=== PATIENT | female | born 1950 | race Caucasian/White ===

== ENCOUNTER 2018-02-02 13:35 | Emergency (ER) | payer OTHER ==
[~2018-02-02] VITALS: Ht 157.5 cm; Wt 56.7 kg
[~2018-02-02 13:35] MED LIST: ALBU90OI; ALBU90OI61 INH; ALPR.5 PO; AMIT50 PO; ASPI81CH; ASPI81EC; BAYER PM CAPLE1 EACH PO; BENZ100A; BUPR150T2; CALCAVITD PO; CALCAVITDA; CALGLU500; CALGLU500 PO; CEFD300 PO; CEPH500 PO; CETI10 PO; CETI5 PO; CHOL10002 PO; CIPR500 PO; CLON1; CYCL0.05OP; CYCL10 PO; Cipro500 MG PO; Cymbalta60 MG PO; DIAZ5 PO; DIPH50; DULO60; DULO60 PO; DULOXETINE; ERGO400; ERGO400 PO; ESCI20; FENO145 PO; FISH1000 PO; FLOVENT; FURO20 PO; GABA300 PO; HYDACE10 PO; HYDACE5 PO; HYDHCL25 PO; HYDMOR2 PO; IBUHYD PO; IBUP800 PO; LACT10SY PO; LAVAP17G PO; LEVFLO500 PO; LISI5 PO; LORA10ER; LOVA40 PO; MAGCIT300 PO; MECL25 PO; MELO7.5 PO; METF500; METF500 PO; METO2.5; METR500 PO; MONT10T PO; MULVITMINE; Mobic7.5 MG PO; NIAC500ER PO; NITR.4SL; NORT75 PO; Naprosyn500 MG PO; Neurontin 300300 MG PO; OMEP20ER; OMEP20ER PO; ONDA8ODT MM; OXYACE5T PO; OXYC10TA19 PO; OXYC5 PO; Omeprazole20 M1 PO; PHENA200 PO; PIOG15 PO; POTASSIUM 10 MEQ; POTCHL10ER; POTCHL10ER PO; PRO AIR; PROC25S PR; PROM25 PO; Prilosec20 MG PO; Prinivil5 MG PO; QUET100; QUET200; QUET25; RANI150; RANI150 PO; RISE35; RISE5; RXCEPH500 PO; RXHYDACE PO; RXOXYACE PO; RXPROM25 PO; Roxicodone5 MG PO; SEROQUEL; STOMUL PO; TAMS.4ER; TRAM50 PO; TRAZ100; TRAZ50 PO; TRAZADONE 150MG; Thera Tears1 EACH; Ultram50 MG PO; Voltaren100 GM TOP; ZIPR20; ZIPR20 PO; ZIPR40 PO; ZIPR80; ZIPR80 PO; ZIPRASIDONE; Zantac150 MG PO; Zofran Odt4 MG SL
== END 2018-02-02 15:50 | disposition home or self-care (01) ==
LOC: ER 13:35
DX: S62.367D Nondisplaced fracture of neck of fifth metacarpal bone, left hand, subsequent encounter for fracture with routine healing (principal); W22.8XXD Striking against or struck by other objects, subsequent encounter; Z88.0 Allergy status to penicillin; Z88.5 Allergy status to narcotic agent; Z88.1 Allergy status to other antibiotic agents; Z88.2 Allergy status to sulfonamides; Z79.899 Other long term (current) drug therapy; J45.909 Unspecified asthma, uncomplicated
CPT/HCPCS: 96372; 99282; J1885

== ENCOUNTER 2018-02-24 02:31 | Emergency (ER) | payer OTHER ==
[~2018-02-24] VITALS: Ht 154.9 cm; Wt 55.3 kg
[2018-02-24] MEDS ORDERED: PANT20 (03:55)
== END 2018-02-24 04:14 | disposition home or self-care (01) ==
LOC: ER 02:31
DX: S62.327D Displaced fracture of shaft of fifth metacarpal bone, left hand, subsequent encounter for fracture with routine healing (principal); S62.337D Displaced fracture of neck of fifth metacarpal bone, left hand, subsequent encounter for fracture with routine healing; E11.9 Type 2 diabetes mellitus without complications; J45.909 Unspecified asthma, uncomplicated; Z88.5 Allergy status to narcotic agent; Z88.0 Allergy status to penicillin; Z88.2 Allergy status to sulfonamides; Z88.1 Allergy status to other antibiotic agents; Z88.8 Allergy status to other drugs, medicaments and biological substances; Z79.899 Other long term (current) drug therapy
CPT/HCPCS: 29125; 73120; 96372; 99283-25; J1885

== ENCOUNTER 2018-07-10 17:57 | Emergency (ER) | payer MEDICARE, OTHER ==
[~2018-07-10] VITALS: Ht 160 cm; Wt 49.9 kg
[~2018-07-10 17:57] MED LIST changes: +Cyclobenzaprine5 MG PO; +Norco 5-325 Ta1 EACH PO; +PANT20
[2018-07-10] MEDS ORDERED: LIDO700A20 TOP (19:09)
[2018-08-14] MEDS ORDERED: IBUP400 PO (21:40)
[2018-08-14] MEDS ORDERED: HYDHCL25 PO (21:40)
== END 2018-07-10 19:33 | disposition home or self-care (01) ==
LOC: ER 17:57
DX: M25.511 Pain in right shoulder (principal); E11.9 Type 2 diabetes mellitus without complications; Z88.6 Allergy status to analgesic agent; Z88.2 Allergy status to sulfonamides; Z88.0 Allergy status to penicillin; Z88.5 Allergy status to narcotic agent; Z88.1 Allergy status to other antibiotic agents; Z88.8 Allergy status to other drugs, medicaments and biological substances
CPT/HCPCS: 99283

== ENCOUNTER 2018-07-29 20:28 | Emergency (ER) | payer MEDICARE, OTHER ==
[~2018-07-29] VITALS: Ht 157.5 cm; Wt 54.4 kg
[~2018-07-29 20:28] MED LIST changes: +LIDO700A20 TOP
[2018-07-29] MEDS ORDERED: Zantac150 MG PO (22:02)
[2018-07-29] MEDS ORDERED: BENA20 PO (22:03)
[2018-07-29] MEDS ORDERED: Robaxin500 MG PO (22:28)
[2018-08-14] MEDS ORDERED: HYDHCL25 PO (21:40)
[2018-08-14] MEDS ORDERED: IBUP400 PO (21:40)
== END 2018-07-29 22:38 | disposition home or self-care (01) ==
LOC: ER 20:28
DX: M79.641 Pain in right hand (principal); E11.9 Type 2 diabetes mellitus without complications; J45.909 Unspecified asthma, uncomplicated; Z88.6 Allergy status to analgesic agent; Z88.0 Allergy status to penicillin; Z88.2 Allergy status to sulfonamides; Z88.5 Allergy status to narcotic agent; Z88.1 Allergy status to other antibiotic agents; Z88.8 Allergy status to other drugs, medicaments and biological substances; Z79.899 Other long term (current) drug therapy
CPT/HCPCS: 99283

== ENCOUNTER 2018-08-19 10:42 | Emergency (ER) | payer MEDICARE, OTHER ==
[~2018-08-19] VITALS: Ht 157.5 cm; Wt 54.4 kg
[~2018-08-19 10:42] MED LIST changes: +BENA20 PO; +IBUP400 PO; +Robaxin500 MG PO
[2018-08-19] MEDS ORDERED: Robaxin500 MG PO (11:56)
[2018-08-22] MEDS ORDERED: LIDO700A20 TOP (20:37)
== END 2018-08-19 12:11 | disposition home or self-care (01) ==
LOC: ER 10:42
DX: R07.81 Pleurodynia (principal); K21.9 Gastro-esophageal reflux disease without esophagitis; E11.9 Type 2 diabetes mellitus without complications; J45.909 Unspecified asthma, uncomplicated; Z88.6 Allergy status to analgesic agent; Z88.0 Allergy status to penicillin; Z88.2 Allergy status to sulfonamides; Z88.8 Allergy status to other drugs, medicaments and biological substances; Z88.5 Allergy status to narcotic agent; Z79.899 Other long term (current) drug therapy
CPT/HCPCS: 99283

== ENCOUNTER 2018-09-20 21:47 | Emergency (ER) | payer MEDICARE ==
[~2018-09-20] VITALS: Ht 157.5 cm; Wt 54.4 kg
[2018-09-20] MEDS ORDERED: OXYC5 PO (22:16)
[2018-09-20] MEDS ORDERED: TRAM50 PO (22:17)
[2018-09-20] MEDS ORDERED: Robaxin-750750 MG PO (23:59)
[2018-09-20] MEDS ORDERED: IBUP800 PO (23:59)
[2018-09-20] MEDS ORDERED: Ultram50 MG PO (23:59)
== END 2018-09-21 00:35 | disposition home or self-care (01) ==
LOC: ER 21:47
DX: R07.89 Other chest pain (principal); M54.6 Pain in thoracic spine; G89.29 Other chronic pain; Z88.0 Allergy status to penicillin; Z88.2 Allergy status to sulfonamides; Z88.8 Allergy status to other drugs, medicaments and biological substances; Z88.1 Allergy status to other antibiotic agents; Z79.899 Other long term (current) drug therapy; E11.9 Type 2 diabetes mellitus without complications; K21.9 Gastro-esophageal reflux disease without esophagitis
CPT/HCPCS: 96372; 99283-25; J1885

== ENCOUNTER 2018-11-21 00:28 | Emergency (ER) | payer OTHER ==
[~2018-11-21 00:28] MED LIST changes: +Robaxin-750750 MG PO
== END 2018-11-21 03:30 | disposition left against medical advice (07) ==
LOC: ER 00:28
DX: Z53.21 Procedure and treatment not carried out due to patient leaving prior to being seen by health care provider (principal)

== ENCOUNTER 2019-03-15 13:57 | Emergency (ER) | payer OTHER ==
[~2019-03-15] VITALS: Ht 157.5 cm; Wt 60.3 kg
[2019-03-15 15:25] LABS: Calcium, Ionized (POC) 1.26 mmol/L (1.10-1.46); Chloride (POC) 101 mmol/L (98-108); Creatinine (POC) 0.9 mg/dL (0.6-1.0); Glucose (ISTAT POC) 90 mg/dL (70-99); Potassium (POC) 4.4 mmol/L (3.5-5.5); Sodium (POC) 139 mmol/L (135-148); Total CO2 (POC) 31 mmol/L (21-32)
[2019-03-15] MEDS ORDERED: MOTION RELIEF25 MG PO (15:30)
== END 2019-03-15 15:55 | disposition home or self-care (01) ==
LOC: ER 13:57
PROVIDERS: Physician Assistant
DX: R42 Dizziness and giddiness (principal); E11.22 Type 2 diabetes mellitus with diabetic chronic kidney disease; N18.9 Chronic kidney disease, unspecified; F17.200 Nicotine dependence, unspecified, uncomplicated; Z88.8 Allergy status to other drugs, medicaments and biological substances; Z88.0 Allergy status to penicillin; Z88.2 Allergy status to sulfonamides; Z88.1 Allergy status to other antibiotic agents; Z88.5 Allergy status to narcotic agent
CPT/HCPCS: 36415; 80047; 85014; 93005; 93010; 99284-25

== ENCOUNTER 2019-04-06 19:34 | Emergency (ER) | payer OTHER ==
[~2019-04-06] VITALS: Ht 157.5 cm; Wt 56.7 kg
[~2019-04-06 19:34] MED LIST changes: +MOTION RELIEF25 MG PO
[2019-04-06] MEDS ORDERED: Flonase 0.05% N16 GM ×2 (19:51→20:21)
[2019-04-06] MEDS ORDERED: Sudogest60 MG PO (19:51)
== END 2019-04-06 20:22 | disposition home or self-care (01) ==
LOC: ER 19:34
DX: J32.9 Chronic sinusitis, unspecified (principal); E11.9 Type 2 diabetes mellitus without complications; K21.9 Gastro-esophageal reflux disease without esophagitis; J45.909 Unspecified asthma, uncomplicated; Z79.899 Other long term (current) drug therapy
CPT/HCPCS: 99283

== ENCOUNTER 2019-12-02 18:16 | Emergency (ER) | payer MEDICARE ==
[~2019-12-02] VITALS: Ht 162.6 cm; Wt 60.3 kg
[~2019-12-02 18:16] MED LIST changes: +Flonase 0.05% N16 GM; +Sudogest60 MG PO
== END 2019-12-02 22:05 | disposition home or self-care (01) ==
LOC: ER 18:16
DX: S29.011A Strain of muscle and tendon of front wall of thorax, initial encounter (principal); E11.9 Type 2 diabetes mellitus without complications; J45.909 Unspecified asthma, uncomplicated; K21.9 Gastro-esophageal reflux disease without esophagitis; Z88.6 Allergy status to analgesic agent; Z88.0 Allergy status to penicillin; Z88.2 Allergy status to sulfonamides; Z88.5 Allergy status to narcotic agent; Z88.8 Allergy status to other drugs, medicaments and biological substances; Z88.1 Allergy status to other antibiotic agents; X50.0XXA Overexertion from strenuous movement or load, initial encounter
CPT/HCPCS: 99283

== ENCOUNTER 2019-12-07 19:03 | Emergency (ER) | payer MEDICARE ==
[~2019-12-07] VITALS: Ht 157.5 cm; Wt 60.3 kg
== END 2019-12-07 21:24 | disposition home or self-care (01) ==
LOC: ER 19:03
DX: B35.4 Tinea corporis (principal); Z88.0 Allergy status to penicillin; Z88.2 Allergy status to sulfonamides; Z88.5 Allergy status to narcotic agent; Z88.1 Allergy status to other antibiotic agents
CPT/HCPCS: 99282

== ENCOUNTER 2020-02-24 00:29 | Emergency (ER) | payer MEDICARE ==
[~2020-02-24] VITALS: Ht 157.5 cm; Wt 59.0 kg
== END 2020-02-24 02:50 | disposition home or self-care (01) ==
LOC: ER 00:29
DX: S60.221A Contusion of right hand, initial encounter (principal); M25.521 Pain in right elbow; E11.9 Type 2 diabetes mellitus without complications; K21.9 Gastro-esophageal reflux disease without esophagitis; J45.909 Unspecified asthma, uncomplicated; Z88.6 Allergy status to analgesic agent; Z88.0 Allergy status to penicillin; Z88.2 Allergy status to sulfonamides; Z88.5 Allergy status to narcotic agent; Z88.1 Allergy status to other antibiotic agents; Z88.8 Allergy status to other drugs, medicaments and biological substances; W01.0XXA Fall on same level from slipping, tripping and stumbling without subsequent striking against object, initial encounter; Y92.480 Sidewalk as the place of occurrence of the external cause
CPT/HCPCS: 73090; 73110; 96372; 99283-25; J1885

== ENCOUNTER 2020-09-14 10:51 | Emergency (ER) | payer MEDICARE ==
[~2020-09-14] VITALS: Ht 157.5 cm; Wt 54.4 kg
[2020-09-14] MEDS ORDERED: HYDHCL25 PO (12:17)
[2020-09-14] MEDS ORDERED: Benadryl Itch28.3 G1 TOP (12:17)
== END 2020-09-14 12:21 | disposition home or self-care (01) ==
LOC: ER 10:51
DX: L30.8 Other specified dermatitis (principal); E11.9 Type 2 diabetes mellitus without complications; K21.9 Gastro-esophageal reflux disease without esophagitis; Z88.5 Allergy status to narcotic agent; Z88.0 Allergy status to penicillin; Z88.2 Allergy status to sulfonamides; Z88.1 Allergy status to other antibiotic agents; Z79.899 Other long term (current) drug therapy
CPT/HCPCS: 99282

== ENCOUNTER 2022-01-19 00:52 | Emergency (ER) | payer MEDICARE ==
[~2022-01-19 00:52] MED LIST changes: +Benadryl Itch28.3 G1 TOP
== END 2022-01-19 04:30 | disposition home or self-care (01) ==
LOC: ER 00:52
DX: M25.511 Pain in right shoulder (principal); R07.9 Chest pain, unspecified; E11.9 Type 2 diabetes mellitus without complications; J45.909 Unspecified asthma, uncomplicated; Z88.6 Allergy status to analgesic agent; Z88.1 Allergy status to other antibiotic agents; Z88.5 Allergy status to narcotic agent; Z88.0 Allergy status to penicillin; Z88.2 Allergy status to sulfonamides; Z88.8 Allergy status to other drugs, medicaments and biological substances
CPT/HCPCS: 93005; 93010

== ENCOUNTER 2022-04-23 01:54 | Emergency (ER) | payer MEDICARE ==
[~2022-04-23] VITALS: Ht 152.4 cm; Wt 63.5 kg
== END 2022-04-23 02:55 | disposition home or self-care (01) ==
LOC: ER 01:54
DX: L03.115 Cellulitis of right lower limb (principal); L02.415 Cutaneous abscess of right lower limb; L03.116 Cellulitis of left lower limb; L02.416 Cutaneous abscess of left lower limb; E11.9 Type 2 diabetes mellitus without complications; J45.909 Unspecified asthma, uncomplicated; Z88.0 Allergy status to penicillin; Z88.2 Allergy status to sulfonamides; Z88.6 Allergy status to analgesic agent; Z88.1 Allergy status to other antibiotic agents; Z88.5 Allergy status to narcotic agent; Z88.8 Allergy status to other drugs, medicaments and biological substances; Z79.899 Other long term (current) drug therapy
CPT/HCPCS: A9270

== ENCOUNTER 2023-01-11 16:44 | Emergency (ER) | payer MEDICARE ==
[~2023-01-11] VITALS: Ht 160 cm; Wt 49.9 kg
[2023-01-11 18:17] LABS: BASOPHILS ABSOLUTE AUTO 0.03 K/mm3 (0.00-0.23); BASOPHILS PERCENT AUTO 1 % (0-2); EOSINOPHILS PERCENT AUTO 0 % (0-6); Hematocrit 49.5 % (33.0-51.0); Hemoglobin 16.6 g/dL (11.5-16.0); IMMATURE GRAN ABSOLUTE AUTO 0.02 K/mm3 (0.00-0.10); IMMATURE GRAN PERCENT AUTO 1 % (0-1); LYMPHOCYTES ABSOLUTE AUTO 1.18 K/mm3 (0.84-5.20); LYMPHOCYTES PERCENT AUTO 28 % (21-46); MONOCYTES ABSOLUTE AUTO 0.62 K/mm3 (0.16-1.47); MONOCYTES PERCENT AUTO 15 % (4-13); Mean Corpuscular HGB 30.1 pg (26.0-34.0); Mean Corpuscular HGB Conc 33.5 g/dL (31.5-36.5); Mean Corpuscular Volume 90 fL (80-100); Mean Platelet Volume 9.9 fL (9.1-12.4); NEUTROPHILS PERCENT AUTO 56 % (41-73); Platelet Count 210 K/mm3 (150-400); RDW Coefficient Variation 11.7 % (11.7-14.2); RDW Standard Deviation 38.2 fL (35.1-46.3); Red Blood Cell Count 5.52 M/mm3 (3.80-5.20); White Blood Cell Count 4.15 K/mm3 (4.00-11.30)
[2023-01-11 18:34] LABS: Albumin, Blood 3.4 g/dL (3.4-5.0); Albumin/Globulin Ratio 0.7 (0.8-1.8); Bilirubin, Total 0.5 mg/dL (0.1-1.0); Bun/Creatinine Ratio 16.2 (12.0-20.0); Creatinine, Blood 0.8 mg/dL (0.40-1.00); Globulin, Blood 4.6 g/dL (2.2-4.0); Potassium, Blood 3.8 mmol/L (3.5-5.5)
[2023-01-11 19:00] VITALS: BP 116/57
[2023-01-11] MEDS ORDERED: ALBU90OI INH (19:00)
[2023-01-11] MEDS ORDERED: PRED20 PO (19:00)
== END 2023-01-11 19:13 | disposition home or self-care (01) ==
LOC: ER 16:44
PROVIDERS: Emergency Medicine
DX: J45.901 Unspecified asthma with (acute) exacerbation (principal); E11.9 Type 2 diabetes mellitus without complications; J45.909 Unspecified asthma, uncomplicated; K21.9 Gastro-esophageal reflux disease without esophagitis
CPT/HCPCS: 71045; 80053; 84484; 85025; 93005; 93010; 94644; 94664; 96374; 99285-25; J2930

== ENCOUNTER 2023-01-14 10:43 | Emergency (ER) | payer MEDICARE ==
[~2023-01-14] VITALS: Ht 160 cm; Wt 52.2 kg
[~2023-01-14 10:43] MED LIST changes: +ALBU90OI INH; +PRED20 PO
[2023-01-14 11:16] LABS: BASOPHILS ABSOLUTE AUTO 0.04 K/mm3 (0.00-0.23); BASOPHILS PERCENT AUTO 1 % (0-2); EOSINOPHILS ABSOLUTE AUTO 0.03 K/mm3 (0.00-0.68); EOSINOPHILS PERCENT AUTO 1 % (0-6); Hematocrit 47.2 % (33.0-51.0); Hemoglobin 15.9 g/dL (11.5-16.0); IMMATURE GRAN PERCENT AUTO 0 % (0-1); LYMPHOCYTES ABSOLUTE AUTO 1.48 K/mm3 (0.84-5.20); LYMPHOCYTES PERCENT AUTO 31 % (21-46); MONOCYTES PERCENT AUTO 13 % (4-13); Mean Corpuscular HGB 30.2 pg (26.0-34.0); Mean Corpuscular HGB Conc 33.7 g/dL (31.5-36.5); Mean Corpuscular Volume 90 fL (80-100); Mean Platelet Volume 10.3 fL (9.1-12.4); NEUTROPHILS ABSOLUTE AUTO 2.63 K/mm3 (1.96-9.15); NEUTROPHILS PERCENT AUTO 55 % (41-73); Platelet Count 282 K/mm3 (150-400); RDW Coefficient Variation 11.8 % (11.7-14.2); RDW Standard Deviation 38.5 fL (35.1-46.3); Red Blood Cell Count 5.27 M/mm3 (3.80-5.20); White Blood Cell Count 4.78 K/mm3 (4.00-11.30)
[2023-01-14 11:42] LABS: Albumin, Blood 3.7 g/dL (3.4-5.0); Albumin/Globulin Ratio 0.8 (0.8-1.8); Bilirubin, Total 0.7 mg/dL (0.1-1.0); Bun/Creatinine Ratio 32.8 (12.0-20.0); Calcium, Blood 8.8 mg/dL (8.5-10.1); Creatinine, Blood 0.91 mg/dL (0.40-1.00); Globulin, Blood 4.5 g/dL (2.2-4.0); Potassium, Blood 3.7 mmol/L (3.5-5.5); Total Protein, Blood 8.2 g/dL (6.4-8.2)
[2023-01-14 16:00] VITALS: BP 112/68
== END 2023-01-14 16:35 | disposition home or self-care (01) ==
LOC: ER 10:43
PROVIDERS: Physician Assistant
DX: J45.901 Unspecified asthma with (acute) exacerbation (principal); R68.83 Chills (without fever); R42 Dizziness and giddiness; M79.642 Pain in left hand; E11.9 Type 2 diabetes mellitus without complications; Z88.6 Allergy status to analgesic agent; Z88.0 Allergy status to penicillin; Z88.2 Allergy status to sulfonamides; Z88.5 Allergy status to narcotic agent; Z88.1 Allergy status to other antibiotic agents; Z79.52 Long term (current) use of systemic steroids; Z79.899 Other long term (current) drug therapy; W19.XXXA Unspecified fall, initial encounter
CPT/HCPCS: 71046; 73130; 80053; 83880; 84145; 85025; 93005; 93010; 94640; 94644; 94664; 96374; 99285-25; A9270; J1100; J3475

== ENCOUNTER 2023-02-19 14:24 | Inpatient (IN) | payer MEDICARE, OTHER ==
[~2023-02-19] VITALS: Ht 162.6 cm; Wt 61.6 kg
[2023-02-19 16:46] LABS: BASOPHILS ABSOLUTE AUTO 0.06 K/mm3 (0.00-0.23); BASOPHILS PERCENT AUTO 1 % (0-2); EOSINOPHILS PERCENT AUTO 2 % (0-6); Hematocrit 38.7 % (33.0-51.0); Hemoglobin 13.4 g/dL (11.5-16.0); IMMATURE GRAN ABSOLUTE AUTO 0.03 K/mm3 (0.00-0.10); IMMATURE GRAN PERCENT AUTO 0 % (0-1); LYMPHOCYTES ABSOLUTE AUTO 1.39 K/mm3 (0.84-5.20); LYMPHOCYTES PERCENT AUTO 14 % (21-46); MONOCYTES ABSOLUTE AUTO 0.47 K/mm3 (0.16-1.47); MONOCYTES PERCENT AUTO 5 % (4-13); Mean Corpuscular HGB 30.5 pg (26.0-34.0); Mean Corpuscular HGB Conc 34.6 g/dL (31.5-36.5); Mean Corpuscular Volume 88 fL (80-100); NEUTROPHILS ABSOLUTE AUTO 8.09 K/mm3 (1.96-9.15); NEUTROPHILS PERCENT AUTO 79 % (41-73); Platelet Count 250 K/mm3 (150-400); RDW Coefficient Variation 12.5 % (11.7-14.2); RDW Standard Deviation 40.5 fL (35.1-46.3); Red Blood Cell Count 4.39 M/mm3 (3.80-5.20); White Blood Cell Count 10.24 K/mm3 (4.00-11.30)
[2023-02-19 17:10] LABS: Bun/Creatinine Ratio 21.1 (12.0-20.0); Calcium, Blood 8.8 mg/dL (8.5-10.1); Creatinine, Blood 0.99 mg/dL (0.40-1.00); Potassium, Blood 3.5 mmol/L (3.5-5.5)
[2023-02-19 18:24] VITALS: BP 133/65
--- NOTE | 2023-02-19 18:33 | NUR ---
PT ARRIVED TO UNIT FROM ER VIA GURNEY, SLIDE TO BED WITH SLIDE SHEET. PT PAINFUL WITH REPOSITIONING. PATIENT DRESSED IN HOSPITAL GOWN AND PERSONAL CLOTHES IN BELONGINGS BAG. PT GIVEN BED BATH TO REMOVE MUD FROM FALL. PUREWICK IN PLACE, PT REPORTS URGENCY. NO SKIN ISSUES NOTED, NO ABRASIONS OR BRUISING SEEN. PULSES PALPABLE. PT DENIES NUMBNESS. [id number] CALL LIGHT IN REACH. PROVIDED WITH SANDWICH AND WATER. PLAN IS FOR NPO AT MIDNIGHT. PT AGREEABLE.
[2023-02-19 19:34] VITALS: BP 130/67
[2023-02-20] VITALS (21 sets, daily range): BP systolic 93–131; BP diastolic 40–90
--- NOTE | 2023-02-20 10:30 | NUR ---
PT TO OR AT APROX 1030
--- NOTE | 2023-02-20 11:04 | NUR ---
BED inTO Day Surgery, Patient confirms NPO status and agrees with scheduled surgery. Pre-Op teaching done. Pt verbalizes understanding. History, Chart, Medications and Allergies reviewed before start of procedure. PT REPORTS PAIN 9/10 BUT IS RESTING/SLEEPING INBETWEEN INTERVENTIONS, WAKENS QUICKLY WHEN SPOKEN TO.
[2023-02-20 11:28] LABS: U Amphetamine Screen DETECTED; U Barbituate Screen Not Detected; U Benzodiazapine Screen Not Detected; U Buprenorphine Screen Not Detected; U Cannabinoids Screen Not Detected; U Cocaine Screen Not Detected; U Methadone Screen Not Detected; U Methamphetamine Screen DETECTED; U Opiates Screen DETECTED; U Oxycodone Screen Not Detected; U Phencyclidine Screen Not Detected; U Propoxyphene Screen Not Detected
[2023-02-21 02:19] LABS: Source, Urine Foley catheter
[2023-02-21 02:32] LABS: Bilirubin, Urine Neg (Neg); Blood, Urine 1+ (Neg); Glucose Qualitative, Urine 2+ (Neg); Ketones, Urine 1+ (Neg); Leukocyte Esterase, Urine 3+ (Neg); Nitrite, Urine Pos (Neg); Protein, Urine 2+ (Neg); Specific Gravity, Urine 1.015 (1.003-1.022); Urobilinogen, Urine NORM (Normal)
[2023-02-21 02:34] LABS: Appearance, Urine Hazy (Clear); Color, Urine Yellow (P-Yellow)
[2023-02-21 02:37] LABS: Bacteria Many /hpf; Red Blood Cells, Urine 0-2 /hpf (0-2); Squamous Epithelial Cells Few /hpf (Few); White Blood Cells, Urine 50-100 /hpf (0-5)
[2023-02-21 04:28] LABS: BASOPHILS ABSOLUTE AUTO 0.02 K/mm3 (0.00-0.23); BASOPHILS PERCENT AUTO 0 % (0-2); EOSINOPHILS PERCENT AUTO 0 % (0-6); Hematocrit 37.2 % (33.0-51.0); Hemoglobin 12.7 g/dL (11.5-16.0); IMMATURE GRAN ABSOLUTE AUTO 0.03 K/mm3 (0.00-0.10); IMMATURE GRAN PERCENT AUTO 0 % (0-1); LYMPHOCYTES ABSOLUTE AUTO 0.54 K/mm3 (0.84-5.20); LYMPHOCYTES PERCENT AUTO 5 % (21-46); MONOCYTES ABSOLUTE AUTO 0.35 K/mm3 (0.16-1.47); MONOCYTES PERCENT AUTO 3 % (4-13); Mean Corpuscular HGB 30.4 pg (26.0-34.0); Mean Corpuscular HGB Conc 34.1 g/dL (31.5-36.5); Mean Corpuscular Volume 89 fL (80-100); Mean Platelet Volume 10.2 fL (9.1-12.4); NEUTROPHILS ABSOLUTE AUTO 9.22 K/mm3 (1.96-9.15); NEUTROPHILS PERCENT AUTO 91 % (41-73); Platelet Count 207 K/mm3 (150-400); RDW Coefficient Variation 12.5 % (11.7-14.2); RDW Standard Deviation 40.8 fL (35.1-46.3); Red Blood Cell Count 4.18 M/mm3 (3.80-5.20); White Blood Cell Count 10.16 K/mm3 (4.00-11.30)
[2023-02-21 05:02] LABS: Bun/Creatinine Ratio 23.3 (12.0-20.0); Creatinine, Blood 0.9 mg/dL (0.40-1.00); Potassium, Blood 4.3 mmol/L (3.5-5.5)
[2023-02-21 06:29] VITALS: BP 116/60
[2023-02-21 07:32] VITALS: BP 112/65
[2023-02-21 14:40] VITALS: BP 115/57
--- NOTE | 2023-02-21 17:54 | NUR ---
SUMMARY NO ACUTE CHANGES T/O SHIFT. MEDICATED PER ORDERS FOR PAIN. WORKED WITH THERAPY THIS MORNING AND SAT UP IN CHAIR MOST OF DAY. RINCON CATHETER DC'D THIS SHIFT AND PT HAS VOIDED. CALL LIGHT IN REACH.
[2023-02-21 20:41] VITALS: BP 102/81
[2023-02-22 02:26] VITALS: BP 123/55
--- NOTE | 2023-02-22 06:31 | NUR ---
SHIFT SUMMARY PT A&OX4, AND COOPERATIVE WITH CARE. NO ACUTE CHANGES. MEDICATING FOR PAIN PER EMAR. SBA TO BSC. TOLERATING PO INTAKE. DRESSINGS TO R HIP C/D/I. CALLS APPROPRIATELY, CALL LIGHT WITHIN REACH.
[2023-02-22 07:19] VITALS: BP 115/60
[2023-02-22 14:05] VITALS: BP 116/68
--- NOTE | 2023-02-22 15:47 | NUR ---
summary NO ACUTE CHANGES THUS FAR IN SHIFT. PT UP TO CHAIR FOR MOST OF DAY. AMBULATED TO RESTROOM W/GAIT BELT AND FWW. MEDICATED PER ORDERS FOR PAIN. CALL LIGHT IN REACH.
--- NOTE | 2023-02-22 16:12 | NUR ---
TURNING CARE OVER TO LETTY Zhang RN
[2023-02-22 19:23] VITALS: BP 116/61
[2023-02-23 03:35] VITALS: BP 135/70
[2023-02-23 07:36] VITALS: BP 145/73
--- NOTE | 2023-02-23 08:19 | NUR ---
POD 3 S/P R HIP NAILING. PT VSS T/O NIGHT. DRESSINGS CDI. PT DENIED N/T, CAP REFILL WNL. PAIN MGD PER EMAR W/REP RELIEF. PT REP HAVING NIGHTMARES, AFTER PAIN MED GIVEN, REQUESTED TORADOL TO BE GIVEN DURING NIGHT. PT STAN PO, DENEID N/V, IS VOIDING URINE W/O DIFFICULTY. PT UP OOB W/FWW+1 ASSIST, STAN WELL. PT PLEASANT AND COOPERATIVE W/CARE. PLAN TO MOBILIZE W/PT WHILE AND AWAIT DC PLANNING.
[2023-02-23 14:36] VITALS: BP 118/76
[2023-02-23 19:47] VITALS: BP 162/84
[2023-02-24 02:49] VITALS: BP 158/74
[2023-02-24 07:38] VITALS: BP 144/69
--- NOTE | 2023-02-24 07:39 | NUR ---
POD 4 S/P RIGHT HIP NAILING. PT VSS T/O NIGHT. DRESSING CDI, SITES SOFT TO PALP. PT DENIED N/T, CAP REFILL WNL. PT STRUGGLED W/PAIN MGMT, REP FEELING MORE PAINFUL AFTER PT AND EXERCISES. PAIN MGD PER EMAR AND W/ICE PACKS. PT UP OOB W/FWW+1 ASSIST, STAN WELL. PT PLEASANT AND COOPERATIVE W/CARE. CONT TO AWAIT DC PLANNING.
[2023-02-24 14:58] VITALS: BP 160/77
--- NOTE | 2023-02-24 17:50 | NUR ---
SHIFT SUMMARY POD4 R GAMMA NAIL, A/OX4, VSS, TOLERATING PO, AMBULATING WITH SBA, VOIDING WELL, PAIN WELL MANAGED WITH PO MEDICATIONS. DC PLAN PENDING. NO ACUTE EVENTS THIS SHIFT, CALL LIGHT IN REACH.
[2023-02-24 20:01] VITALS: BP 155/84
--- NOTE | 2023-02-25 03:35 | NUR ---
ORDER UPDATE PT TAKING 1 PERCOCET, NOT MANAGING PAIN WELL. HOSPITALIST NOTIFIED NEW ORDER OBTAINED FOR 1-2 PERCOCET.
[2023-02-25 04:04] VITALS: BP 163/80
--- NOTE | 2023-02-25 04:50 | NUR ---
SHIFT SUMMARY POD 5 R GAMMA NAILING PT A&0 X4, UP TO USE THE COMMODE MULITPLE TIMES T/O NIGHT WITH 1 ASST. PT REPORTS PAIN. PT NOT ABLE TO RELAX AND REST T/O NIGHT. NEW ORDER FOR PAIN MEDICATION. 3 AQUACEL DRESSINGS, ALL C/D/I. NO OTHER CONCERNS AT THIS TIME. CALL LIGHT WITHIN REACH.
[2023-02-25 07:34] VITALS: BP 176/80
[2023-02-25 14:30] VITALS: BP 159/80
[2023-02-25 15:46] VITALS: BP 156/88
--- NOTE | 2023-02-25 16:35 | NUR ---
SHIFT SUMMARY- PT IS A/O, PLESANT AND COOPERATIVE. SHE IS EATING AND DRINKING WELL. HER BLOOD PRESSURE HAS BEEN ELEVATED THIS SHIFT. SHE REPORTED THAT SHE IS TYPICALLY LOW FOR HER BP AND DOES NOT TAKE ANY MEDICATIONS. NOTICED THAT SHE WAS LOW UPON ADMISSION AND HAS STEADLY INCREASED. SPOKE TO DR. VELÁSQUEZ ABOUT THIS. PT DECLINED PAIN MEDICATIONS EARLY THIS SHIFT BUT I DID GIVE HER SOME THIS AFTERNOON TO SEE IF IT WOULD HELP DECREASE HER BP. IT WAS STILL ELEVATED UPON RECHECKING. PROVIDED A ONE TIME DOSE OF [place]ASC. PT HAD LA FROM ONWARD OUTREACH IN TO VISIT AND COORDINATE WITH DISCHARGE PLANNING ABOUT PTS DISCHARGE. HER BED IS IN THE LOW POSITON AND CALL LIGHT IS WITIN LUIS F.
[2023-02-25 17:01] VITALS: BP 139/76
[2023-02-25 19:04] VITALS: BP 139/76
[2023-02-26 03:19] VITALS: BP 135/69
--- NOTE | 2023-02-26 04:13 | NUR ---
SHIFT SUMMARY POD 6 R HIP GAMMA NAILING PT A&0 X4, AMBULATING THE HALLS WITH FWW AND 1 ASST. UP TO THE COMMODE MULTIPLE TIMES T/O NIGHT. REPORTING PAIN, MEDICATED PER EMAR. AQUACEL DRESSINGS ALL C/D/I. VSS, NO OTHER CONCERNS AT THIS TIME. CALL LIGHT WITHIN REACH.
[2023-02-26 07:28] VITALS: BP 113/60
[2023-02-26 08:30] VITALS: BP 113/60
[2023-02-26] MEDS ORDERED: Acetaminophen650 M1 PO (15:04)
[2023-02-26] MEDS ORDERED: Calcium Carbon500 MG PO (15:04)
[2023-02-26] MEDS ORDERED: Colace100 MG PO (15:05)
[2023-02-26] MEDS ORDERED: Percocet 5-3251 EACH PO (15:05)
[2023-02-26] MEDS ORDERED: SENNA LAXATIVE8.6 MG PO (15:06)
--- NOTE | 2023-02-26 15:34 | NUR ---
DISCHARGED EQUIPMENT BEING DELIVERED TO [facility] PER HEPATOLOGIST. REVIEWED DC ORDERS W/PT, VERBALIZED UNDERSTANDING. LEFT UNIT IN WC W/POSSESSIONS AND DC PAPERWORK IN HAND, ACCOMPANIED BY QUILL FIXER. FAXED PRESCRIPTIONS TO [facility] PER PT REQUEST.
== END 2023-02-26 15:33 | disposition home health service (06) | DRG 481 ==
LOC: ER 14:24 → SURS 17:35
PROVIDERS: Internal Medicine; Orthopaedic Surgery; Student in an Organized Health Care Education/Training Program; ADMIT Nurse Practitioner Acute Care
PROC: 0QH634Z Insertion of Internal Fixation Device into Right Upper Femur, Percutaneous Approach (ICD-10-PCS; principal; 2023-02-20 12:30)
DX: S72.144A Nondisplaced intertrochanteric fracture of right femur, initial encounter for closed fracture (principal); N39.0 Urinary tract infection, site not specified; S32.029A Unspecified fracture of second lumbar vertebra, initial encounter for closed fracture; W01.0XXA Fall on same level from slipping, tripping and stumbling without subsequent striking against object, initial encounter; B96.20 Unspecified Escherichia coli [E. coli] as the cause of diseases classified elsewhere; Z59.00 Homelessness unspecified; F15.10 Other stimulant abuse, uncomplicated; J45.909 Unspecified asthma, uncomplicated; K21.9 Gastro-esophageal reflux disease without esophagitis; N18.9 Chronic kidney disease, unspecified; E11.22 Type 2 diabetes mellitus with diabetic chronic kidney disease; M19.90 Unspecified osteoarthritis, unspecified site; M54.50 Low back pain, unspecified; E11.40 Type 2 diabetes mellitus with diabetic neuropathy, unspecified; G89.29 Other chronic pain; Z88.0 Allergy status to penicillin; Z88.2 Allergy status to sulfonamides; Z88.5 Allergy status to narcotic agent; Z88.1 Allergy status to other antibiotic agents; Z88.8 Allergy status to other drugs, medicaments and biological substances; Z90.49 Acquired absence of other specified parts of digestive tract; Z90.710 Acquired absence of both cervix and uterus; Z98.890 Other specified postprocedural states; Z71.51 Drug abuse counseling and surveillance of drug abuser; Z87.01 Personal history of pneumonia (recurrent)
CPT/HCPCS: 36415; 72100; 73502; 80048; 81001; 82947; 85025; 87077; 87086; 87186; 94760; 96374; 97110; 97116; 97161; 97166; 97530; 97535; 99285-25; A9270; C1713; J0690; J0696; J1100; J1650; J1885; J2270; J2371; J2405; J2704; J3010; J7030; J7120

== ENCOUNTER 2023-03-01 14:12 | Emergency (ER) | payer MEDICARE, OTHER ==
[~2023-03-01] VITALS: Ht 160 cm; Wt 56.7 kg
[~2023-03-01 14:12] MED LIST changes: +Acetaminophen650 M1 PO; +Calcium Carbon500 MG PO; +Colace100 MG PO; +Percocet 5-3251 EACH PO; +SENNA LAXATIVE8.6 MG PO
[2023-03-01 15:48] LABS: BASOPHILS ABSOLUTE AUTO 0.09 K/mm3 (0.00-0.23); BASOPHILS PERCENT AUTO 1 % (0-2); EOSINOPHILS ABSOLUTE AUTO 0.38 K/mm3 (0.00-0.68); EOSINOPHILS PERCENT AUTO 5 % (0-6); Hematocrit 36.6 % (33.0-51.0); Hemoglobin 12.4 g/dL (11.5-16.0); IMMATURE GRAN ABSOLUTE AUTO 0.06 K/mm3 (0.00-0.10); IMMATURE GRAN PERCENT AUTO 1 % (0-1); LYMPHOCYTES ABSOLUTE AUTO 1.66 K/mm3 (0.84-5.20); LYMPHOCYTES PERCENT AUTO 20 % (21-46); MONOCYTES ABSOLUTE AUTO 0.79 K/mm3 (0.16-1.47); MONOCYTES PERCENT AUTO 9 % (4-13); Mean Corpuscular HGB 30.7 pg (26.0-34.0); Mean Corpuscular HGB Conc 33.9 g/dL (31.5-36.5); Mean Corpuscular Volume 91 fL (80-100); NEUTROPHILS ABSOLUTE AUTO 5.46 K/mm3 (1.96-9.15); NEUTROPHILS PERCENT AUTO 65 % (41-73); RDW Coefficient Variation 13.2 % (11.7-14.2); RDW Standard Deviation 43.4 fL (35.1-46.3); Red Blood Cell Count 4.04 M/mm3 (3.80-5.20); White Blood Cell Count 8.44 K/mm3 (4.00-11.30)
[2023-03-01 15:52] LABS: Albumin, Blood 3.1 g/dL (3.4-5.0); Albumin/Globulin Ratio 0.8 (0.8-1.8); Bilirubin, Total 0.3 mg/dL (0.1-1.0); Bun/Creatinine Ratio 25.6 (12.0-20.0); Creatinine, Blood 0.86 mg/dL (0.40-1.00); Globulin, Blood 4.1 g/dL (2.2-4.0); Potassium, Blood 4.6 mmol/L (3.5-5.5); Total Protein, Blood 7.2 g/dL (6.4-8.2)
[2023-03-01 15:58] LABS: Mean Platelet Volume 10.1 fL (9.1-12.4); Platelet Count 275 K/mm3 (150-400)
[2023-03-01 19:23] VITALS: BP 154/76
[2023-03-01] MEDS ORDERED: Norco 5-325 Ta1 EACH PO (19:24)
== END 2023-03-01 19:31 | disposition home or self-care (01) ==
LOC: ER 14:12
PROVIDERS: Student in an Organized Health Care Education/Training Program
DX: G89.18 Other acute postprocedural pain (principal); M25.551 Pain in right hip; E11.9 Type 2 diabetes mellitus without complications; Z88.6 Allergy status to analgesic agent; Z88.0 Allergy status to penicillin; Z88.2 Allergy status to sulfonamides; Z88.5 Allergy status to narcotic agent; Z88.1 Allergy status to other antibiotic agents; Z88.8 Allergy status to other drugs, medicaments and biological substances
CPT/HCPCS: 80053; 85025; 93971; 99284-25; A9270

== ENCOUNTER 2023-03-13 00:51 | Emergency (ER) | payer MEDICARE, OTHER ==
[~2023-03-13] VITALS: Ht 157.5 cm; Wt 56.7 kg
[2023-03-13 03:33] VITALS: BP 142/74
== END 2023-03-13 04:12 | disposition home or self-care (01) ==
LOC: ER 00:51
DX: G89.18 Other acute postprocedural pain (principal); M25.551 Pain in right hip; G89.29 Other chronic pain; Z88.8 Allergy status to other drugs, medicaments and biological substances; Z88.0 Allergy status to penicillin; Z88.2 Allergy status to sulfonamides; Z88.1 Allergy status to other antibiotic agents; Z88.5 Allergy status to narcotic agent; Z79.899 Other long term (current) drug therapy; K21.9 Gastro-esophageal reflux disease without esophagitis; E11.9 Type 2 diabetes mellitus without complications
CPT/HCPCS: 96372; 99283-25; A9270; J1885

== ENCOUNTER 2023-05-18 17:38 | Emergency (ER) | payer OTHER, MEDICARE ==
[~2023-05-18] VITALS: Ht 157.5 cm; Wt 54.4 kg
[2023-05-18 17:52] VITALS: BP 124/88
== END 2023-05-19 03:10 | disposition home or self-care (01) ==
LOC: ER 17:38
DX: M25.551 Pain in right hip (principal); Z87.81 Personal history of (healed) traumatic fracture; E11.9 Type 2 diabetes mellitus without complications; J45.909 Unspecified asthma, uncomplicated; K21.9 Gastro-esophageal reflux disease without esophagitis; Z79.899 Other long term (current) drug therapy; Z88.0 Allergy status to penicillin; Z88.1 Allergy status to other antibiotic agents; Z88.2 Allergy status to sulfonamides; Z88.5 Allergy status to narcotic agent; Z88.8 Allergy status to other drugs, medicaments and biological substances; W01.0XXA Fall on same level from slipping, tripping and stumbling without subsequent striking against object, initial encounter
CPT/HCPCS: 72170; 73552; 73562-RT; 82947; 96372; 99284-25; A9270; J1885

== ENCOUNTER 2023-07-05 05:39 | Emergency (ER) | payer OTHER ==
[~2023-07-05] VITALS: Ht 160 cm; Wt 54.4 kg
[2023-07-05 07:38] LABS: Source, Urine Clean Catch
[2023-07-05 07:51] LABS: BASOPHILS ABSOLUTE AUTO 0.04 K/mm3 (0.00-0.23); BASOPHILS PERCENT AUTO 1 % (0-2); EOSINOPHILS ABSOLUTE AUTO 0.22 K/mm3 (0.00-0.68); EOSINOPHILS PERCENT AUTO 3 % (0-6); Hematocrit 49.3 % (33.0-51.0); Hemoglobin 16.7 g/dL (11.5-16.0); IMMATURE GRAN ABSOLUTE AUTO 0.02 K/mm3 (0.00-0.10); IMMATURE GRAN PERCENT AUTO 0 % (0-1); LYMPHOCYTES ABSOLUTE AUTO 0.98 K/mm3 (0.84-5.20); LYMPHOCYTES PERCENT AUTO 13 % (21-46); MONOCYTES ABSOLUTE AUTO 0.47 K/mm3 (0.16-1.47); MONOCYTES PERCENT AUTO 6 % (4-13); Mean Corpuscular HGB 30.3 pg (26.0-34.0); Mean Corpuscular HGB Conc 33.9 g/dL (31.5-36.5); Mean Corpuscular Volume 90 fL (80-100); Mean Platelet Volume 9.8 fL (9.1-12.4); NEUTROPHILS ABSOLUTE AUTO 5.75 K/mm3 (1.96-9.15); NEUTROPHILS PERCENT AUTO 77 % (41-73); Platelet Count 299 K/mm3 (150-400); RDW Coefficient Variation 12.3 % (11.7-14.2); Red Blood Cell Count 5.51 M/mm3 (3.80-5.20); White Blood Cell Count 7.48 K/mm3 (4.00-11.30)
[2023-07-05 07:56] LABS: Appearance, Urine Hazy (Clear); Bilirubin, Urine Neg (Neg); Blood, Urine 1+ (Neg); Color, Urine Yellow (P-Yellow); Glucose Qualitative, Urine Neg (Neg); Ketones, Urine 2+ (Neg); Leukocyte Esterase, Urine 2+ (Neg); Nitrite, Urine Pos (Neg); Protein, Urine Neg (Neg); Urobilinogen, Urine 1+ (Normal)
[2023-07-05 08:15] LABS: Bacteria Many /hpf
[2023-07-05 08:16] LABS: Red Blood Cells, Urine 0-2 /hpf (0-2)
[2023-07-05 08:17] LABS: Hyaline Casts 0-2 /lpf (0-2); Mucus Light (0-Heavy)
[2023-07-05 08:22] LABS: Squamous Epithelial Cells Mod /hpf (Few); Transitional Epithelial Cells Rare /hpf (0-Rare)
[2023-07-05 08:23] LABS: Albumin, Blood 3.2 g/dL (3.4-5.0); Albumin/Globulin Ratio 0.7 (0.8-1.8); Bilirubin, Total 0.4 mg/dL (0.1-1.0); Bun/Creatinine Ratio 23.8 (12.0-20.0); Calcium, Blood 8.6 mg/dL (8.5-10.1); Creatinine, Blood 0.8 mg/dL (0.40-1.00); Globulin, Blood 4.4 g/dL (2.2-4.0); Potassium, Blood 4.5 mmol/L (3.5-5.5); Total Protein, Blood 7.6 g/dL (6.4-8.2)
[2023-07-05] MEDS ORDERED: CEFP200 PO (08:58)
[2023-07-05 09:30] VITALS: BP 126/71
== END 2023-07-05 10:14 | disposition home or self-care (01) ==
LOC: ER 05:39
PROVIDERS: Emergency Medicine
DX: N39.0 Urinary tract infection, site not specified (principal); M79.642 Pain in left hand; Z59.00 Homelessness unspecified; Z88.8 Allergy status to other drugs, medicaments and biological substances; Z88.0 Allergy status to penicillin; Z88.2 Allergy status to sulfonamides; Z88.5 Allergy status to narcotic agent; Z88.1 Allergy status to other antibiotic agents; Z79.899 Other long term (current) drug therapy; E11.9 Type 2 diabetes mellitus without complications; J45.909 Unspecified asthma, uncomplicated; K21.9 Gastro-esophageal reflux disease without esophagitis
CPT/HCPCS: 73130; 80053; 81001; 85025; 87077; 87086; 87186; 99284-25; A9270

== ENCOUNTER 2023-12-14 13:09 | Emergency (ER) | payer OTHER ==
[~2023-12-14] VITALS: Ht 157.5 cm; Wt 54.4 kg
[~2023-12-14 13:09] MED LIST changes: +CEFP200 PO; +CLIN150 PO
[2023-12-14 13:32] VITALS: BP 133/71
[2023-12-14] MEDS ORDERED: Ketorolac Tromethamine 30mg Vial IM ONE (14:55)
[2023-12-14] MEDS ORDERED: Methocarbamol 500 MG Tab PO ONE (14:55)
[2023-12-14] MEDS ORDERED: Lidocaine 4% 1 Patch TOP ONE (14:55)
[2023-12-14] MEDS ORDERED: Acetaminophen 325 MG TABLET PO ONE (14:55)
[2023-12-14] MEDS ORDERED: LIDO700A20 TOP (14:57)
[2023-12-14] MEDS ORDERED: IBUP800 PO (14:57)
[2023-12-14] MEDS ORDERED: Robaxin750 MG PO (14:57)
== END 2023-12-14 15:22 | disposition home or self-care (01) ==
LOC: ER 13:09
DX: S46.912A Strain of unspecified muscle, fascia and tendon at shoulder and upper arm level, left arm, initial encounter (principal); W01.198A Fall on same level from slipping, tripping and stumbling with subsequent striking against other object, initial encounter; Z88.2 Allergy status to sulfonamides; Z88.8 Allergy status to other drugs, medicaments and biological substances; Z88.5 Allergy status to narcotic agent; Z88.1 Allergy status to other antibiotic agents; Z79.899 Other long term (current) drug therapy; E11.9 Type 2 diabetes mellitus without complications; J45.909 Unspecified asthma, uncomplicated; K21.9 Gastro-esophageal reflux disease without esophagitis
CPT/HCPCS: 73030; 96372; 99283-25; A9270; J1885

== ENCOUNTER 2023-12-24 22:05 | Emergency (ER) | payer OTHER ==
[~2023-12-24] VITALS: Ht 157.5 cm; Wt 54.4 kg
[~2023-12-24 22:05] MED LIST changes: +Robaxin750 MG PO
[2023-12-24] MEDS ORDERED: Ketorolac Tromethamine 30mg Vial IM ONE (22:20)
[2023-12-24 23:45] VITALS: BP 131/68
== END 2023-12-24 23:53 | disposition home or self-care (01) ==
LOC: ER 22:05
DX: S00.03XA Contusion of scalp, initial encounter (principal); W22.8XXA Striking against or struck by other objects, initial encounter; Z88.8 Allergy status to other drugs, medicaments and biological substances; Z88.0 Allergy status to penicillin; Z88.2 Allergy status to sulfonamides; Z88.5 Allergy status to narcotic agent; Z88.1 Allergy status to other antibiotic agents; E11.9 Type 2 diabetes mellitus without complications; K21.9 Gastro-esophageal reflux disease without esophagitis
CPT/HCPCS: 70450; 96372; 99284-25; J1885

== ENCOUNTER 2024-11-27 13:10 | Emergency (ER) | payer OTHER ==
[~2024-11-27] VITALS: Ht 157.5 cm; Wt 60.3 kg
[~2024-11-27 13:10] MED LIST changes: +NAPR500 PO
[2024-11-27 13:25] VITALS: BP 122/107
[2024-11-27] MEDS ORDERED: Ketorolac Tromethamine 15mg Vial IM ONE (14:30)
[2024-11-27] MEDS ORDERED: Lidocaine 4% 1 Patch TOP ONE (14:30)
[2024-11-27] MEDS ORDERED: TiZANidine HCl 4 MG Tab PO ONE (14:30)
[2024-11-27] MEDS ORDERED: TraMADol HCl 50 MG Tab PO ONE (15:15)
[2024-11-27] MEDS ORDERED: LIDO700A20 TOP (16:30)
[2024-11-27] MEDS ORDERED: TIZA4 PO (16:30)
== END 2024-11-27 16:48 | disposition home or self-care (01) ==
LOC: ER 13:10
DX: M79.601 Pain in right arm (principal); M25.511 Pain in right shoulder; E11.9 Type 2 diabetes mellitus without complications; J45.909 Unspecified asthma, uncomplicated; K21.9 Gastro-esophageal reflux disease without esophagitis; Z88.6 Allergy status to analgesic agent; Z88.0 Allergy status to penicillin; Z88.2 Allergy status to sulfonamides; Z88.5 Allergy status to narcotic agent; Z88.1 Allergy status to other antibiotic agents; Z88.8 Allergy status to other drugs, medicaments and biological substances; Z59.89 Other problems related to housing and economic circumstances
CPT/HCPCS: 96372; 99282-25; A9270; J1885

== ENCOUNTER 2024-12-17 20:06 | Emergency (ER) | payer OTHER ==
[~2024-12-17] VITALS: Ht 157.5 cm; Wt 58.5 kg
[~2024-12-17 20:06] MED LIST changes: +TIZA4 PO
[2024-12-17 20:16] VITALS: BP 142/93
[2024-12-17] MEDS ORDERED: OxyCODONE HCL 5 MG TAB PO ONE (21:40)
[2024-12-17] MEDS ORDERED: Acetaminophen 325 MG TABLET PO ONE (21:40)
[2024-12-17] MEDS ORDERED: Ketorolac Tromethamine 15mg Vial IM ONE (21:40)
[2024-12-17] MEDS ORDERED: Lidocaine 4% 1 Patch TOP ONE (21:45)
== END 2024-12-17 23:14 | disposition home or self-care (01) ==
LOC: ER 20:06
DX: M25.511 Pain in right shoulder (principal); G89.29 Other chronic pain; Z88.8 Allergy status to other drugs, medicaments and biological substances; Z88.0 Allergy status to penicillin; Z88.5 Allergy status to narcotic agent; E11.9 Type 2 diabetes mellitus without complications; K21.9 Gastro-esophageal reflux disease without esophagitis; J45.909 Unspecified asthma, uncomplicated; Z90.49 Acquired absence of other specified parts of digestive tract; Z90.89 Acquired absence of other organs
CPT/HCPCS: 73030; 96372; 99283-25; A9270; J1885

== ENCOUNTER 2025-03-13 14:43 | Emergency (ER) | payer OTHER ==
[~2025-03-13] VITALS: Ht 160 cm; Wt 54.4 kg
[2025-03-13 15:21] LABS: BASOPHILS ABSOLUTE AUTO 0.02 K/mm3 (0.00-0.23); BASOPHILS PERCENT AUTO 0 % (0-2); EOSINOPHILS ABSOLUTE AUTO 0.07 K/mm3 (0.00-0.68); EOSINOPHILS PERCENT AUTO 1 % (0-6); Hematocrit 45.5 % (33.0-51.0); Hemoglobin 15.2 g/dL (11.5-16.0); IMMATURE GRAN ABSOLUTE AUTO 0.01 K/mm3 (0.00-0.10); IMMATURE GRAN PERCENT AUTO 0 % (0-1); LYMPHOCYTES ABSOLUTE AUTO 1.52 K/mm3 (0.84-5.20); LYMPHOCYTES PERCENT AUTO 20 % (21-46); MONOCYTES ABSOLUTE AUTO 0.50 K/mm3 (0.16-1.47); MONOCYTES PERCENT AUTO 7 % (4-13); Mean Corpuscular HGB Conc 33.4 g/dL (31.5-36.5); Mean Corpuscular Volume 91 fL (80-100); NEUTROPHILS ABSOLUTE AUTO 5.32 K/mm3 (1.96-9.15); NEUTROPHILS PERCENT AUTO 72 % (41-73); NRBC ABSOLUTE 0.00 K/mm3 (0.00-0.02); NRBC Auto 0.0 /100 WBC (0.0-0.2); Platelet Count 289 K/mm3 (150-400); RDW Coefficient Variation 12.4 % (11.7-14.2); RDW Standard Deviation 40.7 fL (35.1-46.3)
[2025-03-13 15:59] LABS: Influenza A, PCR NEGATIVE (NEGATIVE); Influenza B, PCR NEGATIVE (NEGATIVE); Resp Syncytial Virus, PCR NEGATIVE (NEGATIVE); SARS-Cov-2 (COVID-19) PCR, MMC NEGATIVE (NEGATIVE)
[2025-03-13 16:26] LABS: Alanine Aminotransfer (ALT/SGP 18.0 U/L (12-78); Albumin, Blood 3.4 g/dL (3.4-5.0); Albumin/Globulin Ratio 0.8 (0.8-1.8); Anion Gap 8.0 mmol/L (3-11); Aspartate Aminotrans (AST/SGOT 15.0 U/L (12-37); Bilirubin, Direct 0.2 mg/dL (0.0-0.3); Bilirubin, Indirect 0.4 mg/dL (0.1-0.7); Bilirubin, Total 0.6 mg/dL (0.1-1.0); Blood Urea Nitrogen 17.0 mg/dL (8-24); CO2, Blood 27.0 mmol/L (21-32); Calcium, Blood 8.4 mg/dL (8.5-10.1); Chloride, Blood 106.0 mmol/L (98-108); Creatinine, Blood 0.97 mg/dL (0.40-1.00); Globulin, Blood 4.2 g/dL (2.2-4.0); Glucose, Blood 99.0 mg/dL (70-99); Potassium, Blood 4.1 mmol/L (3.5-5.5); Sodium, Blood 137.0 mmol/L (136-145); Total Protein, Blood 7.6 g/dL (6.4-8.2)
[2025-03-13 16:55] LABS: Source, Urine Clean Catch
[2025-03-13 17:02] LABS: Color, Urine Yellow (P-Yellow); Glucose Qualitative, Urine Neg (Neg); Ketones, Urine Neg (Neg); Leukocyte Esterase, Urine 3+ (Neg); Protein, Urine 2+ (Neg); Specific Gravity, Urine 1.015 (1.003-1.022); Urobilinogen, Urine 1+ (Normal)
[2025-03-13 17:07] LABS: Bilirubin, Urine 1+ (Neg)
[2025-03-13 17:08] LABS: Red Blood Cells, Urine 0-2 /hpf (0-2)
[2025-03-13] MEDS ORDERED: Ciprofloxacin 400MG/D5 200ML 200 ML IV ONE (18:15)
[2025-03-13] MEDS ORDERED: Ketorolac Tromethamine 15mg Vial IM ONE (20:10)
[2025-03-13] MEDS ORDERED: Trimethoprim/Sulfamethoxazole DS Tab PO ONE (20:15)
[2025-03-13] MEDS ORDERED: CIPR500 PO (20:35)
[2025-03-13 20:45] VITALS: BP 117/62
[2025-03-13] MEDS ORDERED: RX Prepack 2 Tabs Ondansetron ODT 4MG UD ONE (20:45)
== END 2025-03-13 21:06 | disposition home or self-care (01) ==
LOC: ER 14:43
PROVIDERS: Student in an Organized Health Care Education/Training Program
DX: K52.9 Noninfective gastroenteritis and colitis, unspecified (principal); N39.0 Urinary tract infection, site not specified; E11.9 Type 2 diabetes mellitus without complications; J45.909 Unspecified asthma, uncomplicated; K21.9 Gastro-esophageal reflux disease without esophagitis; Z88.8 Allergy status to other drugs, medicaments and biological substances; Z88.0 Allergy status to penicillin; Z88.2 Allergy status to sulfonamides; Z88.5 Allergy status to narcotic agent; Z88.1 Allergy status to other antibiotic agents
CPT/HCPCS: 74177; 80048; 80076; 81001; 85025; 87077; 87086; 87186; 87637; 93005; 93010; 96372-59; 96374-59; 99284-25; A9270; J0744; J1885; Q9967

== ENCOUNTER 2025-03-18 13:02 | Emergency (ER) | payer OTHER ==
[~2025-03-18] VITALS: Ht 160 cm; Wt 56.7 kg
[2025-03-18 13:41] LABS: BASOPHILS ABSOLUTE AUTO 0.09 K/mm3 (0.00-0.23); BASOPHILS PERCENT AUTO 1 % (0-2); EOSINOPHILS ABSOLUTE AUTO 0.16 K/mm3 (0.00-0.68); EOSINOPHILS PERCENT AUTO 1 % (0-6); Hematocrit 47.2 % (33.0-51.0); Hemoglobin 16.1 g/dL (11.5-16.0); IMMATURE GRAN ABSOLUTE AUTO 0.05 K/mm3 (0.00-0.10); IMMATURE GRAN PERCENT AUTO 0 % (0-1); LYMPHOCYTES ABSOLUTE AUTO 1.83 K/mm3 (0.84-5.20); LYMPHOCYTES PERCENT AUTO 16 % (21-46); MONOCYTES ABSOLUTE AUTO 0.66 K/mm3 (0.16-1.47); MONOCYTES PERCENT AUTO 6 % (4-13); Mean Corpuscular HGB Conc 34.1 g/dL (31.5-36.5); Mean Corpuscular Volume 89 fL (80-100); NEUTROPHILS ABSOLUTE AUTO 8.88 K/mm3 (1.96-9.15); NEUTROPHILS PERCENT AUTO 76 % (41-73); NRBC ABSOLUTE 0.00 K/mm3 (0.00-0.02); NRBC Auto 0.0 /100 WBC (0.0-0.2); Platelet Count 275 K/mm3 (150-400); RDW Coefficient Variation 12.8 % (11.7-14.2); RDW Standard Deviation 41.8 fL (35.1-46.3)
[2025-03-18 13:43] LABS: Source, Urine Clean Catch
[2025-03-18 13:45] LABS: Glucose Qualitative, Urine Neg (Neg); Ketones, Urine Neg (Neg); Leukocyte Esterase, Urine 1+ (Neg); Protein, Urine 2+ (Neg); Specific Gravity, Urine 1.020 (1.003-1.022); Urobilinogen, Urine 1+ (Normal)
[2025-03-18] MEDS ORDERED: Ketorolac Tromethamine 15mg Vial IV ONE (13:50)
[2025-03-18] MEDS ORDERED: NS 1,000 ML IV SCH (13:50)
[2025-03-18 13:56] LABS: Bilirubin, Urine 1+ (Neg)
[2025-03-18 13:58] LABS: Color, Urine Yellow (P-Yellow); Red Blood Cells, Urine 0-2 /hpf (0-2)
[2025-03-18 14:09] LABS: Alanine Aminotransfer (ALT/SGP 25.0 U/L (12-78); Albumin, Blood 3.5 g/dL (3.4-5.0); Albumin/Globulin Ratio 0.8 (0.8-1.8); Anion Gap 2.0 mmol/L (3-11); Aspartate Aminotrans (AST/SGOT 26.0 U/L (12-37); Bilirubin, Total 0.4 mg/dL (0.1-1.0); Blood Urea Nitrogen 15.0 mg/dL (8-24); CO2, Blood 26.0 mmol/L (21-32); Calcium, Blood 8.8 mg/dL (8.5-10.1); Chloride, Blood 112.0 mmol/L (98-108); Creatinine, Blood 0.92 mg/dL (0.40-1.00); Globulin, Blood 4.4 g/dL (2.2-4.0); Glucose, Blood 103.0 mg/dL (70-99); Potassium, Blood 3.7 mmol/L (3.5-5.5); Sodium, Blood 136.0 mmol/L (136-145); Total Protein, Blood 7.9 g/dL (6.4-8.2)
[2025-03-18] MEDS ORDERED: ZEBUTAL 50-3251 EAC1 PO (16:16)
[2025-03-18] MEDS ORDERED: ONDA4ODT MM (16:16)
[2025-03-18 16:30] VITALS: BP 130/79
== END 2025-03-18 16:49 | disposition home or self-care (01) ==
LOC: ER 13:02
PROVIDERS: Student in an Organized Health Care Education/Training Program
DX: G43.909 Migraine, unspecified, not intractable, without status migrainosus (principal); Z79.899 Other long term (current) drug therapy; E11.9 Type 2 diabetes mellitus without complications; K21.9 Gastro-esophageal reflux disease without esophagitis; J45.909 Unspecified asthma, uncomplicated; Z88.0 Allergy status to penicillin; Z88.2 Allergy status to sulfonamides; Z88.5 Allergy status to narcotic agent
CPT/HCPCS: 74177; 80053; 81001; 83690; 85025; 96374-59; 99284-25; A9270; J1885; J7030; Q9967

== ENCOUNTER 2025-03-25 20:01 | Emergency (ER) | payer OTHER ==
[~2025-03-25] VITALS: Ht 160 cm; Wt 56.2 kg
[~2025-03-25 20:01] MED LIST changes: +ONDA4ODT MM; +ZEBUTAL 50-3251 EAC1 PO
[2025-03-25] MEDS ORDERED: Ondansetron HCl 2 MG / ML 2ML Vial IV ONE (21:35)
[2025-03-25] MEDS ORDERED: Ketorolac Tromethamine 15mg Vial IV ONE (21:35)
[2025-03-25 22:13] LABS: BASOPHILS ABSOLUTE AUTO 0.07 K/mm3 (0.00-0.23); BASOPHILS PERCENT AUTO 1 % (0-2); EOSINOPHILS ABSOLUTE AUTO 0.16 K/mm3 (0.00-0.68); EOSINOPHILS PERCENT AUTO 2 % (0-6); Hematocrit 38.7 % (33.0-51.0); Hemoglobin 13.3 g/dL (11.5-16.0); IMMATURE GRAN ABSOLUTE AUTO 0.03 K/mm3 (0.00-0.10); IMMATURE GRAN PERCENT AUTO 0 % (0-1); LYMPHOCYTES ABSOLUTE AUTO 1.51 K/mm3 (0.84-5.20); LYMPHOCYTES PERCENT AUTO 16 % (21-46); MONOCYTES ABSOLUTE AUTO 0.75 K/mm3 (0.16-1.47); MONOCYTES PERCENT AUTO 8 % (4-13); Mean Corpuscular HGB Conc 34.4 g/dL (31.5-36.5); Mean Corpuscular Volume 90 fL (80-100); NEUTROPHILS ABSOLUTE AUTO 7.23 K/mm3 (1.96-9.15); NEUTROPHILS PERCENT AUTO 74 % (41-73); NRBC ABSOLUTE 0.00 K/mm3 (0.00-0.02); NRBC Auto 0.0 /100 WBC (0.0-0.2); Platelet Count 297 K/mm3 (150-400); RDW Coefficient Variation 12.8 % (11.7-14.2); RDW Standard Deviation 41.7 fL (35.1-46.3)
[2025-03-25 22:40] LABS: Alanine Aminotransfer (ALT/SGP 18.0 U/L (12-78); Albumin, Blood 2.6 g/dL (3.4-5.0); Albumin/Globulin Ratio 0.7 (0.8-1.8); Anion Gap 4.0 mmol/L (3-11); Aspartate Aminotrans (AST/SGOT 19.0 U/L (12-37); Bilirubin, Total 0.3 mg/dL (0.1-1.0); Blood Urea Nitrogen 14.0 mg/dL (8-24); CO2, Blood 26.0 mmol/L (21-32); Calcium, Blood 7.9 mg/dL (8.5-10.1); Chloride, Blood 111.0 mmol/L (98-108); Creatinine, Blood 0.75 mg/dL (0.40-1.00); Globulin, Blood 3.7 g/dL (2.2-4.0); Glucose, Blood 97.0 mg/dL (70-99); Magnesium, Blood 1.6 mg/dL (1.6-2.4); Potassium, Blood 3.8 mmol/L (3.5-5.5); Sodium, Blood 137.0 mmol/L (136-145); Total Protein, Blood 6.3 g/dL (6.4-8.2)
[2025-03-25 23:14] LABS: Source, Urine Clean Catch
[2025-03-25 23:38] LABS: Bilirubin, Urine Neg (Neg); Glucose Qualitative, Urine Neg (Neg); Ketones, Urine Neg (Neg); Leukocyte Esterase, Urine 1+ (Neg); Protein, Urine 1+ (Neg); Specific Gravity, Urine 1.020 (1.003-1.022); Urobilinogen, Urine NORM (Normal)
[2025-03-25 23:49] LABS: Color, Urine Yellow (P-Yellow)
[2025-03-25 23:50] LABS: Red Blood Cells, Urine 0-2 /hpf (0-2)
[2025-03-25 23:51] VITALS: BP 138/67
[2025-03-26] MEDS ORDERED: ONDA4ODT MM
== END 2025-03-26 00:07 | disposition home or self-care (01) ==
LOC: ER 20:01
PROVIDERS: Student in an Organized Health Care Education/Training Program
DX: R53.1 Weakness (principal); R11.2 Nausea with vomiting, unspecified; K21.9 Gastro-esophageal reflux disease without esophagitis; J45.909 Unspecified asthma, uncomplicated; E11.9 Type 2 diabetes mellitus without complications; Z79.899 Other long term (current) drug therapy; Z88.0 Allergy status to penicillin; Z88.2 Allergy status to sulfonamides; Z88.5 Allergy status to narcotic agent; Z88.1 Allergy status to other antibiotic agents; Z88.8 Allergy status to other drugs, medicaments and biological substances
CPT/HCPCS: 80053; 81001; 83735; 85025; 96374; 96375; 99285-25; J1885; J2405

== ENCOUNTER 2025-04-06 06:24 | Emergency (ER) | payer OTHER ==
[~2025-04-06] VITALS: Ht 160 cm; Wt 56.2 kg
[2025-04-06] MEDS ORDERED: Ondansetron HCl 2 MG / ML 2ML Vial IV ONE (06:40)
[2025-04-06] MEDS ORDERED: NS 1,000 ML IV SCH ×2 (06:40→09:15)
[2025-04-06 07:52] LABS: BASOPHILS ABSOLUTE AUTO 0.05 K/mm3 (0.00-0.23); BASOPHILS PERCENT AUTO 1 % (0-2); EOSINOPHILS ABSOLUTE AUTO 0.10 K/mm3 (0.00-0.68); EOSINOPHILS PERCENT AUTO 1 % (0-6); Hematocrit 39.0 % (33.0-51.0); Hemoglobin 13.6 g/dL (11.5-16.0); IMMATURE GRAN ABSOLUTE AUTO 0.03 K/mm3 (0.00-0.10); IMMATURE GRAN PERCENT AUTO 0 % (0-1); LYMPHOCYTES ABSOLUTE AUTO 1.45 K/mm3 (0.84-5.20); LYMPHOCYTES PERCENT AUTO 14 % (21-46); MONOCYTES ABSOLUTE AUTO 0.68 K/mm3 (0.16-1.47); MONOCYTES PERCENT AUTO 7 % (4-13); Mean Corpuscular HGB Conc 34.9 g/dL (31.5-36.5); Mean Corpuscular Volume 88 fL (80-100); NEUTROPHILS ABSOLUTE AUTO 7.99 K/mm3 (1.96-9.15); NEUTROPHILS PERCENT AUTO 78 % (41-73); NRBC ABSOLUTE 0.00 K/mm3 (0.00-0.02); NRBC Auto 0.0 /100 WBC (0.0-0.2); Platelet Count 328 K/mm3 (150-400); RDW Coefficient Variation 12.5 % (11.7-14.2); RDW Standard Deviation 39.9 fL (35.1-46.3)
[2025-04-06 08:10] LABS: Alanine Aminotransfer (ALT/SGP 14.0 U/L (12-78); Albumin, Blood 2.4 g/dL (3.4-5.0); Albumin/Globulin Ratio 0.6 (0.8-1.8); Anion Gap 3.0 mmol/L (3-11); Aspartate Aminotrans (AST/SGOT 11.0 U/L (12-37); Bilirubin, Total 0.3 mg/dL (0.1-1.0); Blood Urea Nitrogen 15.0 mg/dL (8-24); CO2, Blood 28.0 mmol/L (21-32); Calcium, Blood 8.2 mg/dL (8.5-10.1); Chloride, Blood 107.0 mmol/L (98-108); Creatinine, Blood 0.75 mg/dL (0.40-1.00); Globulin, Blood 4.1 g/dL (2.2-4.0); Glucose, Blood 100.0 mg/dL (70-99); Magnesium, Blood 1.4 mg/dL (1.6-2.4); Potassium, Blood 3.2 mmol/L (3.5-5.5); Sodium, Blood 135.0 mmol/L (136-145); Total Protein, Blood 6.5 g/dL (6.4-8.2)
[2025-04-06] MEDS ORDERED: Mag Sulfate 1 GM/D5% 100ML 100 ML IV ONE (08:25)
[2025-04-06] MEDS ORDERED: PROM25 PO (09:09)
[2025-04-06] MEDS ORDERED: FentaNYL Citrate 50 MCG/ML 2 ML Injection IV ONE (11:20)
[2025-04-06 12:00] VITALS: BP 120/67
== END 2025-04-06 13:07 | disposition home or self-care (01) ==
LOC: ER 06:24
PROVIDERS: Emergency Medicine
DX: R11.2 Nausea with vomiting, unspecified (principal); R19.7 Diarrhea, unspecified; R10.A1 Flank pain, right side; F15.90 Other stimulant use, unspecified, uncomplicated; E11.9 Type 2 diabetes mellitus without complications; J45.909 Unspecified asthma, uncomplicated; K21.9 Gastro-esophageal reflux disease without esophagitis; Z88.5 Allergy status to narcotic agent; Z88.0 Allergy status to penicillin; Z88.2 Allergy status to sulfonamides; Z88.1 Allergy status to other antibiotic agents; Z88.8 Allergy status to other drugs, medicaments and biological substances
CPT/HCPCS: 74177; 80053; 83690; 83735; 85025; 96361; 96365-59; 96375; 99284-25; A9270; J2405; J3010; J3475; J7030; Q9967

== ENCOUNTER 2025-04-16 18:53 | Emergency (ER) | payer OTHER ==
[~2025-04-16] VITALS: Ht 165.1 cm; Wt 65.8 kg
[2025-04-16 20:02] LABS: BASOPHILS ABSOLUTE AUTO 0.07 K/mm3 (0.00-0.23); BASOPHILS PERCENT AUTO 1 % (0-2); EOSINOPHILS ABSOLUTE AUTO 0.05 K/mm3 (0.00-0.68); EOSINOPHILS PERCENT AUTO 0 % (0-6); Hematocrit 44.3 % (33.0-51.0); Hemoglobin 14.6 g/dL (11.5-16.0); IMMATURE GRAN ABSOLUTE AUTO 0.04 K/mm3 (0.00-0.10); IMMATURE GRAN PERCENT AUTO 0 % (0-1); LYMPHOCYTES ABSOLUTE AUTO 1.79 K/mm3 (0.84-5.20); LYMPHOCYTES PERCENT AUTO 14 % (21-46); MONOCYTES ABSOLUTE AUTO 0.85 K/mm3 (0.16-1.47); MONOCYTES PERCENT AUTO 6 % (4-13); Mean Corpuscular HGB Conc 33.0 g/dL (31.5-36.5); Mean Corpuscular Volume 90 fL (80-100); NEUTROPHILS ABSOLUTE AUTO 10.48 K/mm3 (1.96-9.15); NEUTROPHILS PERCENT AUTO 79 % (41-73); NRBC ABSOLUTE 0.00 K/mm3 (0.00-0.02); NRBC Auto 0.0 /100 WBC (0.0-0.2); Platelet Count 433 K/mm3 (150-400); RDW Coefficient Variation 12.9 % (11.7-14.2); RDW Standard Deviation 42.2 fL (35.1-46.3)
[2025-04-16 20:32] LABS: Alanine Aminotransfer (ALT/SGP 17.0 U/L (12-78); Albumin, Blood 2.5 g/dL (3.4-5.0); Albumin/Globulin Ratio 0.5 (0.8-1.8); Anion Gap 5.0 mmol/L (3-11); Aspartate Aminotrans (AST/SGOT 18.0 U/L (12-37); Bilirubin, Total 0.3 mg/dL (0.1-1.0); Blood Urea Nitrogen 16.0 mg/dL (8-24); CO2, Blood 27.0 mmol/L (21-32); Calcium, Blood 8.9 mg/dL (8.5-10.1); Chloride, Blood 106.0 mmol/L (98-108); Creatinine, Blood 0.84 mg/dL (0.40-1.00); Globulin, Blood 4.8 g/dL (2.2-4.0); Glucose, Blood 118.0 mg/dL (70-99); Potassium, Blood 4.1 mmol/L (3.5-5.5); Sodium, Blood 134.0 mmol/L (136-145); Total Protein, Blood 7.3 g/dL (6.4-8.2)
[2025-04-16] MEDS ORDERED: Ondansetron HCl 2 MG / ML 2ML Vial IV ONE (20:45)
[2025-04-16] MEDS ORDERED: Ketorolac Tromethamine 15mg Vial IV ONE (20:45)
[2025-04-16 22:08] LABS: Source, Urine Clean Catch
[2025-04-16 22:16] LABS: Glucose Qualitative, Urine Neg (Neg); Ketones, Urine Neg (Neg); Leukocyte Esterase, Urine 1+ (Neg); Protein, Urine 1+ (Neg); Specific Gravity, Urine 1.020 (1.003-1.022); Urobilinogen, Urine 1+ (Normal)
[2025-04-16 22:22] LABS: Bilirubin, Urine 1+ (Neg); Color, Urine Yellow (P-Yellow)
[2025-04-16 22:23] LABS: Red Blood Cells, Urine Not Seen /hpf (0-2); White Blood Cells, Urine 0-2 /hpf (0-5)
[2025-04-16] MEDS ORDERED: CLIN300 PO (22:29)
[2025-04-16 23:05] VITALS: BP 102/51
== END 2025-04-16 23:05 | disposition home or self-care (01) ==
LOC: ER 18:53
PROVIDERS: Student in an Organized Health Care Education/Training Program
DX: K04.7 Periapical abscess without sinus (principal); E11.9 Type 2 diabetes mellitus without complications; Z59.02 Unsheltered homelessness; Z88.6 Allergy status to analgesic agent; Z88.0 Allergy status to penicillin; Z88.2 Allergy status to sulfonamides; Z88.5 Allergy status to narcotic agent; Z88.1 Allergy status to other antibiotic agents; Z88.8 Allergy status to other drugs, medicaments and biological substances
CPT/HCPCS: 80053; 81001; 83690; 85025; 93005; 93010; 96374; 96375; 99284-25; A9270; J1885; J2405

== ENCOUNTER 2025-05-14 22:48 | Emergency (ER) | payer OTHER ==
[~2025-05-14] VITALS: Ht 157.5 cm; Wt 52.2 kg
[~2025-05-14 22:48] MED LIST changes: +Aerochamber1 EACH PO; +CLIN300 PO; +Ondansetron4 MG/2 M2 IV; +PROM12.5S PR
[2025-05-14] MEDS ORDERED: Meperidine HCl 50 MG/ML 1ML Injection IM ONE (23:05)
[2025-05-14] MEDS ORDERED: Diazepam 5 MG / ML 2ML SYR IM ONE (23:05)
[2025-05-14] MEDS ORDERED: HYDROmorphone HCl/Pf 1MG SYR ONE (23:16)
[2025-05-14] MEDS ORDERED: HYDROmorphone HCl/Pf 1MG SYR IM ONE (23:20)
[2025-05-15 00:01] VITALS: BP 125/65
== END 2025-05-15 00:10 | disposition home or self-care (01) ==
LOC: ER 22:48
DX: M25.511 Pain in right shoulder (principal); Z88.0 Allergy status to penicillin; Z88.2 Allergy status to sulfonamides; Z88.5 Allergy status to narcotic agent; Z79.899 Other long term (current) drug therapy; E11.9 Type 2 diabetes mellitus without complications; K21.9 Gastro-esophageal reflux disease without esophagitis; J45.909 Unspecified asthma, uncomplicated; M19.90 Unspecified osteoarthritis, unspecified site
CPT/HCPCS: 96372; 99283-25; J1171; J2175; J3360

== ENCOUNTER 2025-05-25 13:29 | Emergency (ER) | payer OTHER ==
[~2025-05-25] VITALS: Ht 160 cm; Wt 56.2 kg
[2025-05-25 13:58] VITALS: BP 125/76
[2025-05-25] MEDS ORDERED: Ketorolac Tromethamine 30mg Vial IM ONE (16:40)
== END 2025-05-25 17:07 | disposition home or self-care (01) ==
LOC: ER 13:29
DX: S16.1XXA Strain of muscle, fascia and tendon at neck level, initial encounter (principal); S00.83XA Contusion of other part of head, initial encounter; S50.01XA Contusion of right elbow, initial encounter; S70.01XA Contusion of right hip, initial encounter; S80.01XA Contusion of right knee, initial encounter; Z88.0 Allergy status to penicillin; Z88.5 Allergy status to narcotic agent; Z79.899 Other long term (current) drug therapy; E11.9 Type 2 diabetes mellitus without complications; J45.909 Unspecified asthma, uncomplicated; M19.90 Unspecified osteoarthritis, unspecified site; W18.30XA Fall on same level, unspecified, initial encounter
CPT/HCPCS: 70450; 72125; 73080; 73502; 73562-RT; 96372; 99284-25; A9270; J1885

== ENCOUNTER 2025-06-12 20:42 | Emergency (ER) | payer OTHER ==
[~2025-06-12] VITALS: Ht 162.6 cm; Wt 52.2 kg
[2025-06-12] MEDS ORDERED: Ondansetron 4 MG SoluTab SL ONE (20:55)
[2025-06-12 22:14] LABS: BASOPHILS ABSOLUTE AUTO 0.06 K/mm3 (0.00-0.23); BASOPHILS PERCENT AUTO 1 % (0-2); EOSINOPHILS ABSOLUTE AUTO 0.18 K/mm3 (0.00-0.68); EOSINOPHILS PERCENT AUTO 2 % (0-6); Hematocrit 38.2 % (33.0-51.0); Hemoglobin 12.5 g/dL (11.5-16.0); IMMATURE GRAN ABSOLUTE AUTO 0.02 K/mm3 (0.00-0.10); IMMATURE GRAN PERCENT AUTO 0 % (0-1); LYMPHOCYTES ABSOLUTE AUTO 3.28 K/mm3 (0.84-5.20); LYMPHOCYTES PERCENT AUTO 35 % (21-46); MONOCYTES ABSOLUTE AUTO 0.58 K/mm3 (0.16-1.47); MONOCYTES PERCENT AUTO 6 % (4-13); Mean Corpuscular HGB Conc 32.7 g/dL (31.5-36.5); Mean Corpuscular Volume 92 fL (80-100); NEUTROPHILS ABSOLUTE AUTO 5.14 K/mm3 (1.96-9.15); NEUTROPHILS PERCENT AUTO 56 % (41-73); NRBC ABSOLUTE 0.00 K/mm3 (0.00-0.02); NRBC Auto 0.0 /100 WBC (0.0-0.2); Platelet Count 302 K/mm3 (150-400); RDW Coefficient Variation 13.5 % (11.7-14.2); RDW Standard Deviation 45.8 fL (35.1-46.3)
[2025-06-12 22:44] LABS: Alanine Aminotransfer (ALT/SGP 16.0 U/L (12-78); Albumin, Blood 2.9 g/dL (3.4-5.0); Albumin/Globulin Ratio 0.7 (0.8-1.8); Anion Gap 7.0 mmol/L (3-11); Aspartate Aminotrans (AST/SGOT 18.0 U/L (12-37); Bilirubin, Total 0.2 mg/dL (0.1-1.0); Blood Urea Nitrogen 17.0 mg/dL (8-24); CO2, Blood 27.0 mmol/L (21-32); Calcium, Blood 8.5 mg/dL (8.5-10.1); Chloride, Blood 110.0 mmol/L (98-108); Creatinine, Blood 0.8 mg/dL (0.40-1.00); Globulin, Blood 4.1 g/dL (2.2-4.0); Glucose, Blood 109.0 mg/dL (70-99); Potassium, Blood 3.8 mmol/L (3.5-5.5); Sodium, Blood 140.0 mmol/L (136-145); Total Protein, Blood 7.0 g/dL (6.4-8.2)
[2025-06-13] MEDS ORDERED: ONDA4ODT MM (00:03)
[2025-06-13] MEDS ORDERED: RX Prepack 2 Tabs Ondansetron ODT 4MG UD ONE (00:05)
[2025-06-13] MEDS ORDERED: Ketorolac Tromethamine 30mg Vial IM ONE (00:05)
[2025-06-13 00:32] VITALS: BP 109/62
== END 2025-06-13 00:36 | disposition home or self-care (01) ==
LOC: ER 20:42
PROVIDERS: Student in an Organized Health Care Education/Training Program
DX: K52.9 Noninfective gastroenteritis and colitis, unspecified (principal); E11.9 Type 2 diabetes mellitus without complications; J45.909 Unspecified asthma, uncomplicated; K21.9 Gastro-esophageal reflux disease without esophagitis; Z88.0 Allergy status to penicillin; Z88.2 Allergy status to sulfonamides; Z79.899 Other long term (current) drug therapy
CPT/HCPCS: 80053; 83690; 85025; 96372; 99283-25; A9270; J1885